=== PATIENT | female | born 1985 | race Caucasian/White ===

== ENCOUNTER 2019-12-22 18:45 | Emergency (ER) | payer OTHER, SELFPAY ==
--- NOTE | ~2019-12-22 | XR_ITS ---
EXAMINATION: XR chest 2V DATE: 12/22/2019 20:49 INDICATION: Anterior midsternal chest pain. TECHNIQUE: Frontal and lateral views of the chest were obtained. COMPARISON: None. FINDINGS: The chest demonstrates clear lungs without pneumonia, pleural effusion, or pneumothorax. Th e heart size is normal. IMPRESSION: 1. No acute cardiopulmonary disease. Reviewed, dictated and finalized at location A. UX ENGINEER
--- NOTE | ~2019-12-22 | XR_ITS ---
EXAMINATION: XR ankle RT min 3V DATE: 12/22/2019 19:10 INDICATION: Right ankle injury. TECHNIQUE: 4 views of right ankle were obtained. COMPARISON: None. FINDINGS: There is a comminuted fracture of calcaneus with involvement of the subtalar joint. Boehler 's angle is normal. There is a nondisplaced transverse fracture of base of second metatarsal. Joint s paces are normal. There is an enthesophyte at posterior aspect of calcaneal tuberosity. There is ankl e soft tissue swelling. IMPRESSION: 1. Comminuted fracture of calcaneus. 2. Fracture of second metatarsal. Reviewed, dictated and finalized at location A. L CLEANER
--- NOTE | ~2019-12-22 | CT_ITS ---
EXAMINATION: CT LE RT wo con DATE: 12/22/2019 20:38 INDICATION: Right calcaneus fracture. TECHNIQUE: Computed tomography (CT) of the right lower limb from the distal thigh to the toes was per formed without intravenous contrast. Automated exposure control and iterative reconstruction techniqu e were employed. The dose-length product was 1435.71 mGy-cm. COMPARISON: Right ankle radiographs 12/22/2019 FINDINGS: There is a comminuted joint depression fracture of calcaneus with multiple fracture lines a t the middle facet with less than 2 mm offset or fracture gap at the articular surface. Fracture line s extend to the anterior process of calcaneus. There are chip fractures of dorsal base of fourth meta tarsal. There is a nondisplaced intra-articular oblique fracture of base of third metatarsal. There i s an extra-articular nondisplaced oblique fracture of base of second metatarsal. There are chip fract ures of plantar base of first metatarsal and dorsal aspect of distal medial cuneiform. There are chip fractures of dorsal and plantar aspect of cuboid proximally. There are fractures of plantar aspect o f the navicular proximally. Talar dome is normal. There is an enthesophyte at posterior aspect of isa caneal tuberosity. There is a subcutaneous hematoma medial to the ankle. IMPRESSION: 1. Comminuted joint depression fracture of calcaneus. 2. Fractures of navicular, cuboid, medial cuneiform, and first-fourth metatarsals. Reviewed, dictated and finalized at location A. ER INSPECTOR ELECTRIC IMPRESSION: 1. Comminuted joint depression fracture of calcaneus. 2. Fractures of navicular, cuboid, medial cuneiform, and first-fourth metatarsa ls.
[2019-12-22 18:44] VITALS: BP 109/59; PULSE 73; RESP 18; TEMP 36.7; O2SAT 100
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
[2019-12-22] MEDS: KETOROLAC 30 MG/ML VIAL (*BKC) IV PUSH (20:19)
[2019-12-22 21:56] VITALS: BP 124/68; PULSE 88; RESP 18; O2SAT 98
[2019-12-22] MEDS: MORPHINE SULFATE (*CRX) 4 MG/ML INJ IV PUSH (23:19)
== END 2019-12-22 23:22 | disposition short-term general hospital (02) ==
PROVIDERS: Emergency Provider Emergency Medicine
DX: S92.001A Unspecified fracture of right calcaneus, initial encounter for closed fracture (principal); S92.324A Nondisplaced fracture of second metatarsal bone, right foot, initial encounter for closed fracture; S92.251A Displaced fracture of navicular [scaphoid] of right foot, initial encounter for closed fracture; S92.211A Displaced fracture of cuboid bone of right foot, initial encounter for closed fracture; S92.241A Displaced fracture of medial cuneiform of right foot, initial encounter for closed fracture; S92.341A Displaced fracture of fourth metatarsal bone, right foot, initial encounter for closed fracture; S92.331A Displaced fracture of third metatarsal bone, right foot, initial encounter for closed fracture; S92.311A Displaced fracture of first metatarsal bone, right foot, initial encounter for closed fracture; V49.40XA Driver injured in collision with unspecified motor vehicles in traffic accident, initial encounter
CPT/HCPCS: 29515; 71046; 73610; 73700; 96374; 96375; 99285; J0131; J1885; J2270; J2405; J7030

== ENCOUNTER 2020-10-07 09:13 | Emergency (ER) | payer OTHER, SELFPAY ==
[2020-10-07] VITALS (39 sets, daily range): BP systolic 93–124; BP diastolic 46–87; PULSE 84–110; RESP 16–36; TEMP 38.4; O2SAT 99
--- NOTE | ~2020-10-07 | XR_ITS ---
EXAMINATION: XR chest 1V portable 10/07/2020 11:21 INDICATION: Cough PROCEDURE: AP portable chest COMPARISON: 12/22/2019 FINDINGS: Patchy right basilar infiltrates, suspicious for pneumonia. The cardiomediastinal silhouett e is within normal limits. There are no pleural effusions. There is no pneumothorax suspected. IMPRESSION: 1: Patchy right basilar infiltrates, suspicious for pneumonia. Reviewed, dictated and finalized at location A.
--- NOTE | 2020-10-07 09:23 | ED.GENADULT ---
HPI - General Adult General Chief complaint: Upper Respiratory Infection Stated complaint: dyspnea Time Seen by Provider: 10/07/20 09:23 Related Data Home Medications Medication Instructions Recorded Confirmed No Home Medications 12/22/19 12/22/19 Allergies Allergy/AdvReac Type Severity Reaction Status Date / Time azithromycin Allergy Mild RASH Verified 12/22/19 18:49 clindamycin Allergy Unknown Rash Verified 12/22/19 18:49 PMF Past Medical History Medical History (Updated 12/23/19 @ 00:00 by Sapna Stein) No active medical problems Social History Social History (Updated 12/22/19 @ 21:57 by Gabriella Baker PA-C) Substance use: never Discharge Plan Discharge Prescriptions: No Action No Home Medications RF: 0
--- NOTE | 2020-10-07 09:24 | ED.GENADULT ---
HPI - General Adult General Chief complaint: Upper Respiratory Infection Stated complaint: dyspnea Time Seen by Provider: 10/07/20 09:23 History of Present Illness HPI narrative: Patient is a 35-year-old female otherwise healthy who comes emergency room today complaining of upper respiratory type symptoms. Patient reports that she started feeling sick 7 days ago and symptoms have become worse since yesterday. She has been having weakness, shortness of breath, body aches, back pain, coughing and fevers. Has not had her COVID-19 vaccine. No one else in her house is feeling sick. She has no other medical conditions. No history of COVID-19. This is her first time seeking care during this illness. No chance of . Otherwise denies any abdominal pain, nausea, vomiting, diarrhea or any other symptoms or concerns. Related Data Allergies Allergy/AdvReac Type Severity Reaction Status Date / Time azithromycin Allergy Mild RASH Verified 10/07/20 09:30 clindamycin Allergy Unknown Rash Verified 10/07/20 09:30 Review of Systems Constitutional: Constitutional: Reports as per HPI, Reports chills, Reports fatigue, Denies fever(s), Denies night sweats and Denies weakness Cardiovascular: Cardiovascular: Denies chest pain, Denies edema, Denies leg edema, Denies dyspnea and Denies orthopnea Respiratory: Respiratory: Reports as per HPI, Reports cough and Reports dyspnea Gastrointestinal: Gastrointestinal: Denies abdominal pain, Denies constipation, Denies diarrhea, Denies nausea and Denies vomiting Musculoskeletal: Musculoskeletal: Denies abnormal gait, Denies back pain, Denies numbness and Denies tingling Neurologic: Denies Abnormal speech present, Denies abnormal gait, Denies numbness, Denies tingling and Denies weakness Psychiatric: Psychiatric: Denies homicidal ideation and Denies suicidal ideation [facility] Past Medical History Medical History (Updated 10/07/20 @ 14:32 by Martin Yuan PA-C) No active medical problems Social History Social History (Updated 12/22/19 @ 21:57 by Gabriella Baker PA-C) Substance use: never Exam Const: General: No diaphoretic Orientation/consciousness: patient oriented x3 Other: Pleasant, no distress HENMT: Head: normal to inspection, normocephalic and atraumatic Ears: external ears normal General nose exam: Normal external nose present Eyes: Pupils: Equal, round and reactive pupils present EOM: EOMs intact bilaterally Neck: Neck: normal visual inspection Chest: Chest palpation & inspection: normal inspection of the chest and no tenderness Resp: Effort & Inspection: normal respiratory effort, able to speak in complete sentences, uses accessory muscles and other (No distress) Auscultation: crackles Other: Crackles present in right lung base Cardio: Rate: regular rate Rhythm: regular rhythm GI: Inspection: normal to inspection GI Palp: No abdominal tenderness : General: Yes no CVA tenderness Back/Spine/Pelvis: Back: no CVA tenderness Skin: General skin exam: normal color and no rashes or lesions noted Lesions: no lesions Neuro: General: patient oriented x3, no focal motor deficits and CN's II-XI intact bilaterally Cranial nerves: Yes Equal, round and reactive pupils present Speech: No Abnormal speech present Extrem: General: normal to inspection and full ROM Psych: Appearance: grossly normal and well kempt Mental Status: mental status grossly normal Speech and movement: Normal speech and movement present Affect: normal affect Thought process: Normal thought process present Course Course Emergency Course: 1430 Rechecked the patient. Agreeable with plan for discharge. Chest x-ray showing pneumonia. I think this is can end up being a Covid pneumonia considering we are in the middle of a COVID-19 pandemic and she does not have any leukocytosis. However is not the typical Covid pneumonia presentation as it is only in right lung so will cover for antibiotics until
[2020-10-07] MEDS: LACTATED RINGERS 1,000 ML 999 ML IV CONT (11:41)
[2020-10-07] MEDS: BENZONATATE 100 MG CAPSULE 200 MG PO (11:41)
[2020-10-07] MEDS: ACETAMINOPHEN 500 MG TABLET 1000 MG PO (11:42)
[2020-10-07] MEDS: KETOROLAC 30 MG/ML VIAL (*BKC) IV PUSH (11:42)
[2020-10-07 12:04] LABS: Basophils Percent Auto 0.2 % (0.2-1.2); Hematocrit 32.2 % (37.0-47.0); Hemoglobin 10.2 g/dL (12.0-15.0); Immature Granulocyte Absolute 0.02 K/mm3 (0.00-0.031); Immature Granulocyte Percent A 0.4 % (0-0.5); Lymphocytes Absolute Auto 0.81 K/mm3 (0.9-3.2); Lymphocytes Percent Auto 17.2 % (18.3-44.2); Mean Corpuscular HGB Conc 31.7 g/dl (32-36); Mean Corpuscular Hemoglobin 29.1 pg (26-34); Mean Corpuscular Volume 91.7 fl (80-100); Mean Platelet Volume 10.1 fl (7.4-10.4); Monocytes Absolute Auto 0.2 K/mm3 (0.1-0.6); Monocytes Percent Auto 4.7 % (2.6-8.5); Neutrophils Absolute Auto 3.7 K/mm3 (1.3-6.7); Neutrophils Percent Auto 77.5 % (45.5-73.1); Platelet Count Result 153 k/mm3 (150-375); Red Blood Count 3.51 M/mm3 (4.2-5.4); Red Cell Distribution Width 12.7 % (11.5-14.5); White Blood Count 4.7 K/mm3 (4.5-10.0)
[2020-10-07 12:21] LABS: Alanine Aminotransferase 14 U/L (4-35); Albumin Level 4.2 g/dL (3.5-5.1); Alkaline Phosphatase 69 U/L (38-126); Anion Gap 8 mmol/L (8-16); Aspartate Amino Transferase 24 U/L (14-36); Bilirubin,Total 0.2 mg/dL (0.2-1.3); Blood Urea Nitrogen 6 mg/dL (7-17); Calcium 8.5 mg/dL (8.4-10.2); Carbon Dioxide 24 mmol/L (22-30); Chloride 103 mmol/L (98-107); Estimated CRCL calculation 77 ml/min; Estimated Glomerular Filt Rate > 60; Glucose 100 mg/dL (65-110); Potassium 3.5 mmol/L (3.4-5.0); Sodium 135 mmol/L (137-145)
[2020-10-07 14:01] LABS: Lactic Acid Reflex 0.6 mmol/L (0.7-2.1)
[2020-10-11 13:58] LABS: SARS-CoV-2 RNA PCR Positive
== END 2020-10-07 15:00 | disposition home or self-care (01) ==
PROVIDERS: Physician Assistant Medical; Emergency Provider Emergency Medicine
DX: U07.1 COVID-19 (principal); J12.82 Pneumonia due to coronavirus disease 2019; J06.9 Acute upper respiratory infection, unspecified
CPT/HCPCS: 36415; 71045; 80053; 83605; 85025; 87426; 96361; 96365; 96375; 99284; A9270; C9803; J0696; J1885; J7120; U0003; U0005

== ENCOUNTER 2021-08-26 14:51 | Outpatient (CLI) | payer OTHER, SELFPAY ==
[2021-08-26 15:12] LABS: Basophils Absolute Auto 0.1 K/mm3 (0.0-0.1); Eosinophils Absolute Auto 0.1 K/mm3 (0-0.3); Eosinophils Percent Auto 1.9 % (0-4.4); Hematocrit 38.2 % (37.0-47.0); Hemoglobin 12.5 g/dL (12.0-15.0); Lymphocytes Absolute Auto 1.64 K/mm3 (0.9-3.2); Lymphocytes Percent Auto 31.7 % (18.3-44.2); Mean Corpuscular HGB Conc 32.7 g/dl (32-36); Mean Corpuscular Hemoglobin 30.5 pg (26-34); Mean Corpuscular Volume 93.2 fl (80-100); Mean Platelet Volume 10.3 fl (7.4-10.4); Monocytes Absolute Auto 0.4 K/mm3 (0.1-0.6); Monocytes Percent Auto 6.9 % (2.6-8.5); Neutrophils Percent Auto 58.5 % (45.5-73.1); Platelet Count Result 219 k/mm3 (150-375); Red Cell Distribution Width 12.1 % (11.5-14.5); White Blood Count 5.2 K/mm3 (4.5-10.0)
[2021-08-26 15:30] LABS: Appearance Urine Clear (Clear); Bilirubin Urine Negative (Negative); Color Urine Yellow (Yellow); Glucose Urine UA Negative (Negative); Ketones Urine Negative (Negative); Leukocyte Esterase Ur 3+ LEU/UL (NEGATIVE); Nitrate Urine Negative (Negative); Protein Urine Negative (Negative); Specific Grav Ur 1.025 (1.001-1.035); Urobilinogen Urine 0.2 mg/dL (<2.0); pH Urine 6.5 (5.0-9.0)
[2021-08-26 15:41] LABS: Bacteria Urine Trace /hpf; Mucus Urine Rare /lpf; Squamous Epithelial Cell Urine Few /hpf (Few)
[2021-08-26 15:45] LABS: Add Urine Microscopic? YES; Blood Urine Trace-Intact (Negative)
[2021-08-26 16:46] LABS: Alanine Aminotransferase 10 U/L (6-35); Albumin Level 4.3 g/dL (3.5-5.1); Alkaline Phosphatase 53 U/L (38-126); Anion Gap 6 mmol/L (8-16); Aspartate Amino Transferase 24 U/L (14-36); Bilirubin,Total 0.3 mg/dL (0.2-1.3); Blood Urea Nitrogen 14 mg/dL (7-17); Calcium 9.2 mg/dL (8.4-10.2); Carbon Dioxide 26 mmol/L (22-30); Chloride 106 mmol/L (98-107); Cholesterol 184 mg/dL (0-200); Estimated Glomerular Filt Rate > 60; Glucose 93 mg/dL (65-110); HDL Direct 42 mg/dL; Potassium 3.9 mmol/L (3.4-5.0); Sodium 138 mmol/L (137-145); Triglycerides 77 mg/dL (<150)
[2021-08-26 16:47] LABS: Iron 94 ug/dL (37-170)
[2021-08-26 17:12] LABS: LDL Cholesterol Direct 98 mg/dL
[2021-08-26 17:19] LABS: Percent Iron Saturation 27 % (20-50)
[2021-08-26 18:11] LABS: Folic Acid 15.5 ng/mL (2.76->20)
== END 2021-08-26 14:52 | disposition home or self-care (01) ==
LOC: ANHLAB 14:52
PROVIDERS: PCP Nurse Practitioner Family; Visit Provider Nurse Practitioner Family
DX: D64.9 Anemia, unspecified (principal); Z13.6 Encounter for screening for cardiovascular disorders; Z00.00 Encounter for general adult medical examination without abnormal findings; Z13.29 Encounter for screening for other suspected endocrine disorder
CPT/HCPCS: 36415; 80053; 80061; 81001; 82607; 82746; 83540; 83550; 84443; 85025